=== PATIENT | female | born 1970 | race Caucasian/White ===

== ENCOUNTER → 2023-12-07 09:39 | Outpatient (REF) | payer BC, SELFPAY | LOC: HWRAD 09:39 | PROVIDERS: ATTENDING PHYSICIAN Internal Medicine Hematology & Oncology; FAMILY PHYSICIAN Family Medicine | DX: C50.912 Malignant neoplasm of unspecified site of left female breast (principal) | CPT/HCPCS: 74177; Q9967 ==

== ENCOUNTER → 2024-01-20 09:46 | Outpatient (REF) | payer BC, SELFPAY | LOC: HWRAD 09:46 | PROVIDERS: ATTENDING PHYSICIAN Internal Medicine Hematology & Oncology; FAMILY PHYSICIAN Family Medicine | DX: C50.912 Malignant neoplasm of unspecified site of left female breast (principal); R10.11 Right upper quadrant pain; E83.10 Disorder of iron metabolism, unspecified; Z13.820 Encounter for screening for osteoporosis | CPT/HCPCS: 77080 ==

== ENCOUNTER 2024-03-23 13:09 | Emergency (ER) | payer BC, SELFPAY ==
[2024-03-23 13:20] VITALS: BP 139/72
[2024-03-23 13:51] LABS: % Eosinophils 2.5 % (0-6); % Immature Granulocytes 0.5 % (0-0.5); % Lymphocytes 27.3 % (20.5-51.1); % Monocytes 5.6 % (1.7-9.3); % Neutrophils 63.1 % (42.2-75.2); Absolute Basophils 0.1 10^3/uL (0-0.2); Absolute Eosinophils 0.2 10^3/uL (0-0.7); Absolute Lymphocytes 1.7 10^3/uL (1.2-3.4); Absolute Monocytes 0.4 10^3/uL (0.1-0.6); Hematocrit 39.3 % (37.0-47.0); Hemoglobin 13.2 g/dL (12.0-16.0); Mean Corp Hgb Conc. 33.6 g/dL (33.0-37.0); Mean Corpuscular Hgb 29.5 pg (27.0-31.0); Mean Corpuscular Volume 87.9 fL (81.0-99.0); Mean Platelet Volume 8.6 fL (7.4-10.4); Nucleated Red Blood Cells % 0 %; Platelet Count 239 10^3/uL (130-400); Red Blood Cell Count 4.47 10^6/uL (4.20-5.40); White Blood Cell Count 6.3 10^3/uL (4.8-10.8)
[2024-03-23 14:04] LABS: ALT (SGPT) 87 U/L (0-35); AST (SGOT) 71 U/L (14-36); Albumin 4.4 g/dl (3.5-5.0); Alkaline Phosphatase 106 U/L (38-126); Blood Urea Nitrogen 13 mg/dl (7-17); Carbon Dioxide 27 mmol/L (22-30); Chloride 105 mmol/L (98-107); Glucose 114 mg/dl (70-99); Potassium 3.7 mmol/L (3.5-5.1); Sodium 140 mmol/L (135-145); Total Bilirubin 0.4 mg/dl (0.2-1.3); eGFR > 60.00
[2024-03-23 14:16] LABS: Troponin I < 0.012 ng/ml
[2024-03-23 15:57] VITALS: BP 131/82
[2024-03-23 16:00] VITALS: BP 119/72
[2024-03-23 16:24] LABS: D-Dimer 0.36 ug/mlFEU (0.00-0.50)
[2024-03-23 18:02] VITALS: BP 123/72
--- NOTE | 2024-03-23 18:15 | ED.GENMED ---
History of Present Illness
General
Chief Complaint: Cardiac Symptoms
Source: patient
Exam Limitations: none
Time Seen by Provider: 03/23/24 15:18
Travel History
Have you had any contact with someone who has COVID-19?: No
Do you have any symptoms of coronavirus? Fever > 100 degrees, chills, cough, shortness of breath, sore throat, loss of taste or smell, muscle aches, or headache?: No
History of Present Illness
History of Present Illness:
53-year-old female presents after she was making lunch and developed sharp pain under her left breast that was stabbing and brief. Only lasted a few minutes and resolved. She presents for evaluation. She denies any associated shortness of breath
but at that time felt a little bit like the pain made her feel out of breath. No leg swelling. No injury. No rash. No history of coronary disease
Past History
Past History
ED Past Medical History: Cancer (Breast) and Other (Vertigo)
ED Past Surgical History: Other (Port)
Social History
Tobacco: Non-smoker
Alcohol: Occasional
Drug: None
Personal:
Living: with family
Employment: Employed
Family History
Family History: Adopted
Phy Exam
Physical Exam
Physical Exam:
CONSTITUTIONAL Patient alert and oriented to person, place and time. Well-appearing. Vital signs reviewed.
HEAD atraumatic, normocephalic.
EYES eyelids normal to inspection, Pupils equally round and reactive to light, Extraocular muscles intact, Conjunctiva normal, Sclera normal.
NECK normal range of motion, Trachea midline, no jugular venous distention.
RESPIRATORY CHEST No respiratory distress noted, Chest expansion equal, Bilateral breath sounds clear.
CARDIOVASCULAR regular rate and rhythm, Heart sounds normal.
ABDOMEN abdomen nontender, Bowel sounds normal. No distention.
BACK normal inspection, no obvious deformities
UPPER EXTREMITY range of motion normal, Motor strength normal, no cyanosis, no edema.
LOWER EXTREMITY range of motion normal, Motor strength normal, no cyanosis, no edema.
NEURO Speech normal, No focal motor deficits, [place] coma scale 15, Memory normal, Cranial Nerves intact to screening exam.
SKIN skin warm, dry, and normal in color.
PSYCHIATRIC patient oriented to person place and time, Normal affect.
Course
Orders/Labs/Results
Orders:
Orders
03/23/24 13:23
Electrocardiogram (*1) Urgent
Reason for Study: Palpitations
EKG- Treatment ONCE
03/23/24 13:35
Complete Blood Count/With Diff Urgent
Comprehensive Metabolic Panel Urgent
Troponin I Urgent
03/23/24 15:56
DDimer [D-Dimer] Stat
03/23/24 16:37
CR Chest - 2 Views Urgent
Comment:
Reason For Exam: L cp
Abnormal Lab Results
03/23/24
13:35
Glucose 114 H mg/dl
(70-99)
AST 71 H U/L
(14-36)
ALT 87 H U/L
(0-35)
03/23/24 13:35
03/23/24 13:35
Vital Signs
Initial and Last Documented VS:
Initial Vital Signs
Temp Pulse Resp BP Pulse Ox
98.7 F 66 18 139/72 99
03/23/24 13:20 03/23/24 13:20 03/23/24 13:20 03/23/24 13:20 03/23/24 13:20
Last Documented Vital Signs
Temp Pulse Resp BP Pulse Ox
98.7 F 58 12 123/72 95
03/23/24 13:20 03/23/24 16:30 03/23/24 16:30 03/23/24 18:02 03/23/24 18:15
MDM/Problems Addressed
MDM/Problems Addressed:
Atypical chest pain
*Radiology
Radiology exam reviewed: radiology read reviewed
*Pulse Oximetry
Patient hypoxic: no
*EKG
Interpreted by ED Provider?: Yes
Interpretation: normal
Rate: normal
Rhythm: sinus
[place]: normal axis
Ischemia: no ischemia
*Rn Staffing Interpretation
Rate: normal
Interpretation: normal
Rhythm: sinus
*Critical Care Note
Total Time (30-74mins, 75-104mins- exclusive of procedures): Not Applicable
Data Reviewed
Source: patient and spouse
Further Testing Considered But Not Given:
Consider CTA but D-dimer negative
Patient Management
Escalation/DeEscalation of care consider admission/obs:
No further symptoms. EKG normal. Labs normal. Okay for discharge and outpatient follow-up
ED Attending Note
-
Portions of this chart may have been created with voice recognition software.� Occasional wrong word or��sound alike� substitutions may have occurred due to the inherent limitations of voice recognition software.
Discharge Plan
Departure
Patient Disposition: Home (Routine Discharge)
Date of Disposition: 03/23/24
Time of Disposition: 18:18
Patient with high blood pressure during this ER visit?: No
Discharge Problem:
Atypical chest pain
Instructions: Chest Pain PCP Follow Up
Prescriptions:
No Action
ibuprofen 200 MG tablet
400 mg PO Q4HPRN PRN (Reason: pain)
multivitamin with folic acid [Tab-A-Gerry] 1 TABLET tablet
2 cap PO DAILY
Patient Comments:
'gummies'
acetaminophen 500 MG tablet
1,000 mg PO PRN PRN (Reason: pain)
vitamin B complex 1 TAB tablet
1 tab PO DAILY
Vitamin E (Dl,Tocopheryl Acet) [Vitamin E] 180 MG Capsule
400 unit PO DAILY
tamoxifen 10 MG tablet
20 mg PO DAILY
hydrocodone-acetaminophen 5-300 mg tablet
1 tab PO Q6H PRN (Reason: Pain) Qty: 14 0RF
Referrals:
UNKNOWN - PT DOES,NOT KNOW [Family Provider] -
Activity Restrictions/Additional Instructions:
Return immediately for shortness of breath, worsening symptoms, palpitations, leg swelling, fevers, abdominal pain or any other concerns. Please see your doctor in the next 2 to 3 days for follow-up and reevaluation
Interventions
Interventions:
*Risk Screen - Suicide Last Done: 03/23/24 15:19
*General Assessment Last Done: 03/23/24 15:19
*Neglect/Abuse Screening Last Done: 03/23/24 15:19
ED- Fall Risk Assessment Last Done: 03/23/24 18:30
*ED COVID-19 Vaccine History Last Done: 03/23/24 15:19
*Nursing Disposition Last Done: 03/23/24 18:30
ED- Cardiac Assessment Last Done: 03/23/24 15:19
ED- Pulmonary Assessment Last Done: 03/23/24 15:19
Discharge Date and Time
Discharge Date/Time: 03/23/24 18:30
Print Language: BRITISH
== END 2024-03-23 18:30 | disposition home or self-care (01) ==
LOC: EMR 13:09
PROVIDERS: Emergency Medicine; EMERGENCY PHYSICIAN Emergency Medicine
DX: R07.89 Other chest pain (principal); Z85.3 Personal history of malignant neoplasm of breast
CPT/HCPCS: 99283; 71046; 80053; 84484; 85025; 85379; 93005

== ENCOUNTER 2024-09-11 14:51 | Emergency (ER) | payer BC, SELFPAY ==
[2024-09-11 14:53] VITALS: BP 127/84
--- NOTE | 2024-09-11 15:09 | ED.GENMED ---
History of Present Illness
General
Chief Complaint: Back Pain
Source: patient
Time Seen by Provider: 09/11/24 14:58
History of Present Illness
History of Present Illness:
53yoF with a prior history of breast cancer treated with chemotherapy/radiation in 2020 currently on hormonal therapy presenting for evaluation of back pain. She reports pain in her left lower back. Pain has been mild over the past several days.
Her pain acutely worsened at 1 PM this afternoon. She was taking down hollowing decorations at that time. The pain radiates slightly to her left buttock region but is mainly localized to the left lower back. Pain is worse with movement. She
applied heat to the area and took 2 ibuprofen. Pain has slightly improved and is currently rated as a 6-7/10 in severity. No prior history of similar pains. She denies any fevers, chills, dysuria, incontinence, saddle anesthesia, abdominal pain.
Past History
Past History
ED Past Medical History: Cancer (Breast) and Other (Vertigo)
ED Past Surgical History: Other (Port)
Social History
Tobacco: Non-smoker
Alcohol: Occasional
Drug: None
Personal:
Living: with family
Employment: Employed
Family History
Family History: Adopted
Phy Exam
Physical Exam
Physical Exam:
Appears uncomfortable, non-toxic
General Physical Exam
General Presentation: well appearing
General age: appears stated age
General Skin: warm and dry
General Habitus: normal
General Mental: alert
ENT Exam
ENT Exam: normocephalic
Pulmonary Exam
Pulmonary Exam: no respiratory distress
Gastrointestinal Exam
Gastrointestinal Exam: non tender, soft, non distended and no cva tenderness
[place] Coma Scale
Eye Opening: Spontaneous
Verbal Response: Oriented
Motor Response: Obeys Commands
GCS Total Score: 15
Musculoskeletal Exam
Musculoskeletal Exam: other (+Reproducible tenderness in the L paraspinal lumbar region. No skin changes. No midline spinous process tenderness. Negative straight leg raise bilaterally. )
Skin Exam
Skin Exam: normal color and warm/dry
Psychiatric Exam
Psychiatric Exam: normal mood/affect
Course
Orders/Labs/Results
Orders:
Orders
09/11/24 15:08
CT Abd/pel Without Iv Or Oral Urgent
Comment:
Reason For Exam: L lower back pain
Acetaminophen [Tylenol] 1,000 mg PO NOW STA
Ketorolac [Toradol] 15 mg IV NOW STA
Lidocaine [Lidocaine 4% Patch] 1 patch TOPICAL ONCE ONE
Apply Lidocaine patch(s) to:: L lower back
09/11/24 16:05
Complete Blood Count/With Diff Urgent
Comprehensive Metabolic Panel Urgent
Urinalysis Reflex To Culture Urgent
Date Specimen was Collected: 09/11/24
Time Specimen was Collected: 15:47
Urine Microscopic Reflex Cult Urgent
Urine Culture Urgent
FARHAD Source: U
Specimen Description:
Date Specimen was Collected: 09/11/24
Time Specimen was Collected: 15:47
Abnormal Lab Results
09/11/24
16:05
RBC 4.19 L 10^6/uL
(4.20-5.40)
Hgb 11.8 L g/dL
(12.0-16.0)
Hct 35.3 L %
(37.0-47.0)
Absolute Monos (auto) 0.7 H 10^3/uL
(0.1-0.6)
Glucose 110 H mg/dl
(70-99)
Ur Occult Blood Reflex 1+ A
(Negative)
Leukocyte Esterase Rfl 1+ A
(Negative)
Urine RBC 3-6 A /HPF
(0-2)
Urine WBC (Reflex) 11-15 A /HPF
(0-5)
Urine Bacteria (Reflex) Few A
(Negative)
09/11/24 16:05
09/11/24 16:05
Vital Signs
Initial and Last Documented VS:
Initial Vital Signs
Temp Pulse Resp BP Pulse Ox
98.1 F 84 16 127/84 95
09/11/24 14:53 09/11/24 14:53 09/11/24 14:53 09/11/24 14:53 09/11/24 14:53
Last Documented Vital Signs
Temp Pulse Resp BP Pulse Ox
98.1 F 61 18 133/68 99
09/11/24 14:53 09/11/24 17:43 09/11/24 17:43 09/11/24 17:43 09/11/24 17:43
MDM/Problems Addressed
Differential Diagnosis Includes:
53yoF here with L lower back pain. Mild pain x several days which acutely worsened at 1pm while taking down Halloween decorations. Otherwise asymptomatic. Hx of breast cancer in the past. No other red flags in history including no saddle anesthesia,
incontinence, fevers. She is afebrile and hemodynamically stable. She appears uncomfortable but is non-toxic. There is reproducible tenderness in the L paraspinal lumbar region. No abdominal or CVA tenderness noted. Differential diagnosis includes
but is not limited to: muscle strain/spasm, kidney stone, pyelonephritis, less likely fracture
Initial ED plan: Check CBC, CMP, UA, and CT abdomen without contrast. IV Toradol, Tylenol, and lidocaine patch for symptoms.
*Critical Care Note
Total Time (30-74mins, 75-104mins- exclusive of procedures): Not Applicable
Update Note
Update Note:
Labs overall unremarkable including normal white count and renal function. UA with 11-15 WBCs and a few bacteria. CT is negative for acute findings. Specifically, there is no ureterolithiasis. Patient feeling symptomatically improved on
reassessment. Suspect pain is musculoskeletal given that it is reproducible on exam and worse with movement. Discussed abnormal urinalysis with patient although there are no overt signs of a UTI and squamous epithelial cells are present. Offered
to start patient on antibiotics but she prefers to wait for urine culture results at this time. Supportive care discussed and prescription provided for Annika. Advised close f/u with PCP and ED return precautions discussed including fevers, new
numbness/weakness, incontinence. She expressed understanding and is agreeable to plan. She was discharged in stable condition.
ED Attending Note
-
Portions of this chart may have been created with voice recognition software.� Occasional wrong word or��sound alike� substitutions may have occurred due to the inherent limitations of voice recognition software.
Discharge Plan
Departure
Patient Disposition: Home (Routine Discharge)
Date of Disposition: 09/11/24
Time of Disposition: 17:18
Patient with high blood pressure during this ER visit?: No
Discharge Problem:
Acute left-sided low back pain
Instructions: Low Back Pain (DC)
Prescriptions:
New
methocarbamol 500 mg tablet
500 mg PO Q8H PRN (Reason: muscle spasms) Qty: 20 0RF
No Action
ibuprofen 200 MG tablet
400 mg PO Q4HPRN PRN (Reason: pain)
multivitamin with folic acid [Tab-A-Gerry] 1 TABLET tablet
2 cap PO DAILY
Patient Comments:
'gummies'
acetaminophen 500 MG tablet
1,000 mg PO PRN PRN (Reason: pain)
vitamin B complex 1 TAB tablet
1 tab PO DAILY
Vitamin E (Dl,Tocopheryl Acet) [Vitamin E] 180 MG Capsule
400 unit PO DAILY
tamoxifen 10 MG tablet
20 mg PO DAILY
hydrocodone-acetaminophen 5-300 mg tablet
1 tab PO Q6H PRN (Reason: Pain) Qty: 14 0RF
Referrals:
Dorita Arias CRNP [Family Provider] -
Activity Restrictions/Additional Instructions:
Apply heat to affected area. Use lidocaine patches daily (12 hours on, 12 hours off). Take Tylenol and ibuprofen as needed for pain. Take Robaxin (muscle relaxer) as needed for spasms.
Please follow-up with your family doctor. Return to the ER with any worsening symptoms, fevers, new weakness/numbness, or incontinence.
Interventions
Interventions:
*Risk Screen - Suicide Last Done: 09/11/24 14:54
*General Assessment Last Done: 09/11/24 15:46
*Neglect/Abuse Screening Last Done: 09/11/24 14:54
ED- Fall Risk Assessment Last Done: 09/11/24 17:45
*ED COVID-19 Vaccine History Last Done: 09/11/24 14:54
*Nursing Disposition Last Done: 09/11/24 17:45
ED-Musculoskeletal Assessment Last Done: 09/11/24 15:46
Discharge Date and Time
Discharge Date/Time: 09/11/24 17:46
Print Language: PRYDEINIG
[2024-09-11 15:46] VITALS: BMI 33.1
[2024-09-11] MEDS: TYLENOL 1000 MG PO (16:06)
[2024-09-11] MEDS: TORADOL 15 MG IV (16:06)
[2024-09-11] MEDS: LIDOCAINE 4% PATCH 1 PATCH TOPICAL (16:07)
[2024-09-11 16:29] LABS: % Basophils 0.7 % (0-2); % Immature Granulocytes 0.1 % (0-0.5); % Lymphocytes 22.5 % (20.5-51.1); % Neutrophils 66.7 % (42.2-75.2); Absolute Basophils 0.1 10^3/uL (0-0.2); Absolute Eosinophils 0.2 10^3/uL (0-0.7); Absolute Lymphocytes 1.9 10^3/uL (1.2-3.4); Absolute Monocytes 0.7 10^3/uL (0.1-0.6); Absolute Neutrophils 5.6 10^3/uL (1.4-6.5); Hematocrit 35.3 % (37.0-47.0); Hemoglobin 11.8 g/dL (12.0-16.0); Mean Corp Hgb Conc. 33.4 g/dL (33.0-37.0); Mean Corpuscular Hgb 28.2 pg (27.0-31.0); Mean Corpuscular Volume 84.2 fL (81.0-99.0); Mean Platelet Volume 8.8 fL (7.4-10.4); Nucleated Red Blood Cells % 0 %; Platelet Count 261 10^3/uL (130-400); Red Blood Cell Count 4.19 10^6/uL (4.20-5.40); Red Cell Dist. Width 12.6 % (11.5-14.5); White Blood Cell Count 8.4 10^3/uL (4.8-10.8)
[2024-09-11 16:36] LABS: Urine Albumin Negative (Neg - Trace); Urine Bilirubin Negative (Negative); Urine Character Clear (Clear); Urine Color Yellow; Urine Glucose Negative (Negative); Urine Ketone Negative (Negative); Urine Leukocyte 1+ (Negative); Urine Nitrite Negative (Negative); Urine Occult Blood 1+ (Negative); Urine Specific Gravity 1.025 (<1.030); Urine Urobilinogen Negative (Neg - 1+)
[2024-09-11 16:38] LABS: ALT (SGPT) 25 U/L (0-35); AST (SGOT) 29 U/L (14-36); Albumin 4.2 g/dl (3.5-5.0); Alkaline Phosphatase 83 U/L (38-126); Blood Urea Nitrogen 15 mg/dl (7-17); Calcium 9.9 mg/dl (8.4-10.2); Carbon Dioxide 25 mmol/L (22-30); Chloride 104 mmol/L (98-107); Estimated Creatinine Clearance > 125 ml/min; Glucose 110 mg/dl (70-99); Potassium 3.9 mmol/L (3.5-5.1); Sodium 142 mmol/L (135-145); Total Bilirubin 0.4 mg/dl (0.2-1.3); Total Protein 6.6 g/dl (6.3-8.2); eGFR > 60.00
[2024-09-11 16:55] LABS: Urine Mucus Moderate
[2024-09-11 16:56] LABS: Urine Calcium Oxalate Crystals Present
[2024-09-11 16:57] LABS: Urine Bacteria Few (Negative)
[2024-09-11 17:43] VITALS: BP 133/68
== END 2024-09-11 17:46 | disposition home or self-care (01) ==
LOC: EMR 14:51
PROVIDERS: Physician Assistant; EMERGENCY PHYSICIAN Emergency Medicine; FAMILY PHYSICIAN Nurse Practitioner Family
DX: M54.50 Low back pain, unspecified (principal)
CPT/HCPCS: 99284; 96374; 74176; 80053; 81003; 81015; 85025; 87086

== ENCOUNTER → 2024-11-06 12:51 | Outpatient (REF) | payer BC, SELFPAY | LOC: WDC 12:51 | PROVIDERS: ATTENDING PHYSICIAN Internal Medicine Hematology & Oncology | DX: Z12.31 Encounter for screening mammogram for malignant neoplasm of breast (principal) | CPT/HCPCS: 77063; 77067 ==

== ENCOUNTER → 2025-05-24 10:48 | Outpatient (REF) | payer BC, SELFPAY | LOC: WDC 10:48 | PROVIDERS: ATTENDING PHYSICIAN Family Medicine Geriatric Medicine; REFERRING PHYSICIAN Internal Medicine Hematology & Oncology | DX: R92.30 Dense breasts, unspecified (principal); Z85.3 Personal history of malignant neoplasm of breast | CPT/HCPCS: 76641 ==

== ENCOUNTER → 2025-06-05 08:05 | Outpatient (REF) | payer BC, SELFPAY ==
--- NOTE | 2025-06-05 13:28 | OID.BR.INTR ---
RAFFAEL[facility] Breast Navigator - Initial
- -
Date of Contact: 06/05/25
Met with patient. Will follow up as needed per protocol.
== END ==
LOC: WDC 08:05
PROVIDERS: ATTENDING PHYSICIAN Family Medicine Geriatric Medicine
DX: N63.12 Unspecified lump in the right breast, upper inner quadrant (principal)
CPT/HCPCS: 19083; 88305; A4648

== ENCOUNTER → 2025-06-05 09:29 | Outpatient (REF) | payer BC, SELFPAY | LOC: RAD 09:29 | PROVIDERS: ATTENDING PHYSICIAN Family Medicine | DX: N20.0 Calculus of kidney (principal) | CPT/HCPCS: 76775 ==

== ENCOUNTER → 2025-10-11 10:25 | Outpatient (REF) | payer OTHER, SELFPAY | LOC: RAD 10:25 | PROVIDERS: ATTENDING PHYSICIAN Family Medicine | DX: M25.532 Pain in left wrist (principal) | CPT/HCPCS: 73110 ==